=== PATIENT | male | born 1935 | race Caucasian/White ===

== ENCOUNTER → 2020-03-06 | Outpatient (CLI) | payer MEDICARE, BC ==
[~2020-03-06] MED LIST: ATENOLOL50 MG PO; AVODART 0.5MG0.5 MG PO; BUFFERED ASPIR325 M1 PO; LASIX 20MG TABL20 MG PO; MVI PO; MYSOLINE PO; PRILOSEC 20MG20 MG PO; TRICOR145 MG PO; VITAMIN D PO; ZOCOR 20MG20 MG PO
== END ==
LOC: MHCPAIN 14:25
DX: M47.812 Spondylosis without myelopathy or radiculopathy, cervical region (principal); M54.2 Cervicalgia; R51.9 Headache, unspecified; R60.0 Localized edema; G89.29 Other chronic pain
CPT/HCPCS: G0463

== ENCOUNTER 2022-01-15 06:56 | Day surgery (SDC) | payer MEDICARE, BC ==
[~2022-01-15] VITALS: Ht 162.7 cm; Wt 98.2 kg
[2022-01-15] VITALS (258 sets, daily range): BP systolic 119–169; BP diastolic 65–126; PULSE 65–79; TEMP 97.9; O2SAT 89–97
[~2022-01-15 06:56] MED LIST changes: +ASPIRIN E.C. 8181 MG PO; -BUFFERED ASPIR325 M1 PO; -LASIX 20MG TABL20 MG PO; +LASIX 80MG TABL80 MG PO
[2022-01-15 07:46] LABS: HEMATOCRIT 44.4 % (42.0-52.0); HEMOGLOBIN 15.2 g/dl (13.5-18.0); MEAN CELL VOLUME 93 fl (80.0-100.0); MEAN CORPUSCULAR HEMOGLOBIN 32 pg (27-31); MEAN CORPUSCULAR HGB CONC 34 g/dl (33.0-37.0); MEAN PLATELET VOLUME 8.7 fl (7.4-10.4); PLATELET COUNT 172 K/mm3 (130-400); RED BLOOD COUNT 4.79 M/mm3 (4.20-5.60); REDCELL DISTRIBUTION WIDTH-CV 12.2 % (11.5-14.5)
[2022-01-15 07:58] LABS: CALCIUM 9.2 mg/dL (8.4-10.2); CREATININE, serum 0.82 mg/dL (0.72-1.25); POTASSIUM 3.9 mmol/L (3.5-4.5)
[2022-01-15 08:02] LABS: INR 1.1 (0.8-3.0); PROTHROMBIN TIME 12.4 SECONDS (9.7-12.8)
[2022-01-15] MEDS ORDERED: PROSCAR 5MG5 MG PO (08:38)
[2022-01-15] MEDS ORDERED: EPA FISH OIL1 SGL PO (08:39)
[2022-01-15] MEDS ORDERED: GLUCOSAMINE & C1 CA2 PO (08:41)
[2022-01-15] MEDS ORDERED: MUCINEX 60600 MG/TA1 PO (08:56)
[2022-01-15] MEDS ORDERED: HCTZ12.5TAB PO (09:08)
[2022-01-15] MEDS ORDERED: ADVIL200 MG PO (09:08)
[2022-01-15] MEDS ORDERED: COZAAR100 MG PO (09:09)
[2022-01-15] MEDS ORDERED: MULTI VITAMINS1 TAB PO (09:10)
[2022-01-15] MEDS ORDERED: ANTIVERT 25MG25 MG PO (09:10)
[2022-01-15] MEDS ORDERED: VITAMIN FLUSH-F1 CAP PO (09:11)
[2022-01-15] MEDS ORDERED: PRILOSEC 20MG20 MG PO (09:11)
[2022-01-15] MEDS ORDERED: MYSOLINE 250MG250 MG PO ×2 (09:14→09:15)
[2022-01-15] MEDS ORDERED: TUMS EXTRA STR750 MG PO (09:15)
[2022-01-15] MEDS ORDERED: CRESTOR5 MG PO (09:15)
[2022-01-15] MEDS ORDERED: TYLENOL 500MG500 MG PO (09:16)
[2022-01-15] MEDS ORDERED: VITAMIN D31000 I1 PO (09:16)
--- NOTE | 2022-01-15 09:18 | NUR ---
Pt to procedure,report to Harinder Kumar.
--- NOTE | 2022-01-15 09:35 | NUR ---
SEE MERGE FOR VITAL SIGNS, ASSESSMENTS, INTERVENTIONS AND MEDICATIONS GIVEN.
[2022-01-15] MEDS ORDERED: CRESTOR20 MG PO (14:39)
[2022-01-15] MEDS ORDERED: NORVASC 5MG5 MG/TAB PO (14:40)
[2022-01-15] MEDS ORDERED: COZAAR 50MG50 MG/TAB PO (14:41)
--- NOTE | 2022-01-15 15:30 | NUR ---
All air released from band in 2-3 ml incriments.Sterile gauze and coban applied.Dressing observed clean,dry,intact,and soft to touch.Will continue to monitor.
--- NOTE | 2022-01-15 16:00 | NUR ---
Discharge instructions given to pt.Pt verbalizes understanding.Pt escorted out via wheelchair by this nurse.
== END 2022-01-15 16:45 ==
LOC: COL.CAR 06:56
PROVIDERS: Internal Medicine Cardiovascular Disease
DX: I25.10 Atherosclerotic heart disease of native coronary artery without angina pectoris (principal); I25.82 Chronic total occlusion of coronary artery
CPT/HCPCS: C1769; C1887; J1644; J2250; J3010; Q9967